=== PATIENT | male | born 1995 | race Caucasian/White ===

== ENCOUNTER 2016-04-22 10:49 | Emergency (ER) | payer OTHER ==
[2016-04-22] MEDS ORDERED: MAG-AL PLUS XS SUSP 30 ML UDC ONE (11:52)
[2016-04-22] MEDS ORDERED: PHENOBARB/HYOSCY/ATROPINE/SCOP 16.2 MG/5 ML SYR ONE (11:54)
[2016-04-22] MEDS ORDERED: LIDOCAINE VISCOUS 2% 15 ML UDC ONE (11:58)
[2016-04-22] MEDS ORDERED: PANTOPRAZOLE 40 MG TABLET PO ONE (11:59)
[2016-04-22] MEDS ORDERED: MAGNESIUM SULFATE 1 GM/2 ML VIAL ONE (12:08)
[2016-04-22] MEDS ORDERED: MULTIVITAMINS 10 ML VIAL IV ONE (12:09)
[2016-04-22] MEDS ORDERED: THIAMINE HCL 200 MG/2 ML VIAL ONE (12:09)
[2016-04-22] MEDS ORDERED: NORMAL SALINE 0 ML IV ONE (12:09)
--- NOTE | 2016-04-22 13:04 | ER PHYSICIAN DOCUMENTATION ---
Physician Documentation [facility] Name:Eren Balderas Age:20 yrs Sex:Male :1995 Arrival Date:04/22/2016 Time:10:49 Bed3 Private MD: Chong Nelson Disposition: 04/22 11:26 Critical Care: not applicable. cd Disposition: 04/22/16 11:27 Discharged to Home/Self Care. Impression: GERD, Gastritis. - Condition is Fair. - Discharge Instructions: ESOPHAGEAL REFLUX (Adult), GASTRITIS (Adult). - Prescriptions for Prilosec 20 mg Oral Capsule - take 1 capsule by ORAL route once daily; 10 capsule. - Medical Reconciliation form form. - Follow up: Private Physician; When: 7 - 10 days; Reason: Recheck today's complaints, Continuance of care. - Problem is new. - Symptoms have improved. - Notes: Dillon diet for 2 - 3 days. Maalox 30 ml by mouth one hour before meals and one hour after meals and at bedtime for 2 - 3 days. Prilosec 20mg by mouth every day for 10 days. STOP smoking....not even one cigarette while out with friends. No alcoholic drinks for 1 weeks...and reduce alcohol intake from now on. HPI: 10:55 This 20 yrs old Male presents to ER via Private Vehicle with complaints of cd Epigastric discomfort, reflux, tightness in throat.. 10:55 The patient presents with abdominal pain in the epigastric area. Onset: The cd symptoms/episode began/occurred acutely, last night. The symptoms do not radiate. Associated signs and symptoms: Pertinent positives: nausea, and reflux symptoms, Pertinent negatives: blood in stools, diarrhea, fever, shortness of breath, vomiting. The symptoms are described as burning. Severity of pain: At its worst the pain was moderate in the emergency department the pain is unchanged. The patient has experienced similar episodes in the past, today's symptoms are similar, Patient has had multiple workups and no etiology diagnosed. 11:02 Patient reports going out with friends drinking alcohol and smoking a few cigarettes. I cd explained that he needs to cut back significantly on his ETOH consumption and stop smoking completely.. Historical: - Allergies: No known drug Allergies; - Home Meds: 1. sertraline oral - PMHx: Frequent epigastric burning; - Tetanus: unknown. - Ebola Screening: : No symptoms or risks identified at this time. . - Immunization history: Flu Vaccine None. - Social history: Smoking status: Patient uses tobacco products, light tobacco smoker. ROS: 11:02 ENT: Negative for injury, pain, epistaxis and discharge. cd Neck: Negative for injury, pain, stiffness and swelling. Cardiovascular: Negative for chest pain, palpitations, edema and pleuritic pain. Respiratory: Negative for shortness of breath, dyspnea on exertion, cough, sputum production, wheezing, hemoptysis and pleuritic chest pain. 11:02 Back: Negative for injury, pain or muscle spasms. cd 11:02 Constitutional: Positive for poor PO intake, Negative for chills, fever. 11:02 Abdomen/GI: Positive for abdominal pain, nausea, anorexia, Negative for vomiting, diarrhea, abdominal distension, hematemesis, black/tarry stool, rectal bleeding. 11:02 All other systems are negative. Exam: ENT: Nares patent. No nasal discharge, no septal abnormalities noted. Tympanic membranes are normal and external auditory canals are clear. Oropharynx with no redness, swelling, or masses, exudates, or evidence of obstruction, uvula midline. Mucous membranes moist. 11:02 Neck: Trachea midline, no thyromegaly or masses palpated, and no cervical cd lymphadenopathy. Supple, full range of motion without nuchal rigidity, or vertebral point tenderness. No Meningismus. 11:02 Constitutional: The patient appears alert, awake, non-diaphoretic, non-toxic, well developed, well nourished, anxious, in obvious distress, mildly distressed. 11:02 Cardiovascular: Rate: normal, Rhythm: regular, Pulses: no pulse deficits are appreciated. 11:02 Respiratory: the patient does not display signs of respiratory distress, Respirations: normal, no acute changes, Breath sounds: are normal, clear throughout. 11:02 Abdomen/GI: Inspection: abdomen appears normal, Bowel sounds: normal, Palpation: mild abdominal tenderness, in the epigastric area, rebound tenderness, is not appreciated, voluntary guarding, is not appreciated, involuntary guarding, is not appreciated, no appreciated organomegaly, Indicators: McBurney's point is not tender, Real's sign is negative. 11:02 : CVA tenderness, is absent. Vital Signs: 11:06 BP 143 / 100; Pulse 76; Resp 18; Temp 98.1(O); Pulse Ox 95% ; Weight 88.45 kg (R); ma Height 6 ft. 3 in. (190.50 cm); Pain 6/10; 11:45 BP 146 / 86; Pulse 72; Pulse Ox 94% on R/A; ma 12:15 BP 135 / 86; Pulse 56; Pulse Ox 94% on R/A; ma 11:06 Body Mass Index 24.37 (88.45 kg, 190.50 cm) md MDM: 10:55 Data interpreted: Pulse oximetry: on room air is 94 %. Interpretation: normal. cd 11:02 Differential diagnosis: gastritis, GERD. Dehydration. cd 11:05 Data reviewed: vital signs, nurses notes, old medical records, and as a result, I will cd continue to observe the patient, administer IV fluids, NS bolus, and Protonix and a GI cocktail.. 11:17 Patient medically screened. cd 11:20 Counseling: I had a detailed discussion with the patient and/or guardian regarding: the cd historical points, exam findings, and any diagnostic results supporting the discharge/admit diagnosis, the need for outpatient follow up, for a recheck, with the patient's primary care provider, to return to the emergency department if symptoms worsen or persist or if there are any questions or concerns that arise at home. Response to treatment: the patient's symptoms have resolved after treatment, the patient's pain is gone, the patient is now symptom free, patient is well hydrated. and as a result, I will discharge patient. Dispensed Medications: 11:51 Drug: Protonix 40 mg; Route: PO; ma 12:35 Follow up: Response: Pain is decreased ma 11:51 Drug: NS 0.9% 1000 ml; Route: IV; Rate: bolus; Site: left antecubital; Delivery: ma [place] Tubing; 12:35 Follow up: IV Status: Completed infusion; IV Intake: 1000ml ma 12:10 Drug: GI Cocktail w/ Donnatol - (Maalox Suspension 30 ml, Phenobarbital-Belladonna 15 ma ml, Lidocaine Liquid 2 % 15 ml); Route: PO; 12:35 Follow up: Response: Pain is decreased ma Signatures: Abuso, Carmencita, RN RN ma Zenon, Amarilis, RN RN nf Rea, Chong, MD MD cd
--- NOTE | 2016-04-22 13:04 | ER NURSING DOCUMENTATION ---
Nurse's Notes [facility] Name:Eren Balderas Age:20 yrs Sex:Male :1995 Arrival Date:04/22/2016 Time:10:49 Bed3 Private MD: Diagnosis:GERD;Gastritis Presentation: 04/22 10:58 Presenting complaint: Patient states: Pt describes burning upper epigastric area and a ma feeling of tightness in his throat States has had these symptoms for several months and has had multiple workups by several docs including Dr Handy Able to swallow his own saliva No vomiting or diarrhea. Transition of care: Home. 10:58 Acuity: LUDY 3 ma 10:58 Method Of Arrival: Private Vehicle ma Triage Assessment: 11:05 General: Appears in no apparent distress, Behavior is cooperative. Pain: Complains of ma pain in xyphoid area. Respiratory: Reports Onset: The symptoms/episode began/occurred Several months, worse last night since drinking liquor, the patient has moderate shortness of breath. 11:10 GI: Abdomen is flat, Bowel sounds present X 4 quads. Abd is soft Reports upper ma abdominal pain. Historical: - Allergies: No known drug Allergies; - Home Meds: 1. sertraline oral - PMHx: Frequent epigastric burning; - Tetanus: unknown. - Ebola Screening: : No symptoms or risks identified at this time. . - Immunization history: Flu Vaccine None. - Social history: Smoking status: Patient uses tobacco products, light tobacco smoker. Screenin:08 Infectious Disease Risk None. Abuse screen: Denies threats or abuse. Nutritional ma screening: No deficits noted. Assessment: 11:09 Respiratory: Airway is patent Respiratory effort is even, Breath sounds are clear ma bilaterally. Respiratory: No deficits noted. Vital Signs: 11:06 BP 143 / 100; Pulse 76; Resp 18; Temp 98.1(O); Pulse Ox 95% ; Weight 88.45 kg (R); ma Height 6 ft. 3 in. (190.50 cm); Pain 6/10; 11:45 BP 146 / 86; Pulse 72; Pulse Ox 94% on R/A; ma 12:15 BP 135 / 86; Pulse 56; Pulse Ox 94% on R/A; ma 11:06 Body Mass Index 24.37 (88.45 kg, 190.50 cm) fl ED Course: 10:51 Patient arrived in ED. arc 10:58 Carmencita Buckner, RN is Primary Nurse. ma 11:01 Triage completed. ma 11:08 Valuables Remains with patient. Pulse ox on. NIBP on. ma 11:17 Chong Rea MD is Attending Physician. cd 11:17 Inserted peripheral IV: 18 gauge in left antecubital area and blood collected. arc 12:34 Discontinued IV intact, bleeding controlled, pressure dressing applied. ma Administered Medications: 11:51 Drug: Protonix 40 mg; Route: PO; ma 12:35 Follow up: Response: Pain is decreased ma 11:51 Drug: NS 0.9% 1000 ml; Route: IV; Rate: bolus; Site: left antecubital; Delivery: ma [place] Tubing; 12:35 Follow up: IV Status: Completed infusion; IV Intake: 1000ml ma 12:10 Drug: GI Cocktail w/ Donnatol - (Maalox Suspension 30 ml, Phenobarbital-Belladonna 15 ma ml, Lidocaine Liquid 2 % 15 ml); Route: PO; 12:35 Follow up: Response: Pain is decreased ma Intake: 12:35 IV: 1000ml; Total: 1000ml. ma Outcome: 11:27 Discharge ordered by . cd 13:03 Patient left the ED. nf 13:06 Discharged to home ma 13:06 Condition: stable 13:06 Instructed on discharge instructions, follow up and referral plans. Signatures: Carmencita Buckner, Amarilis De La Paz RN, ma, RN RN nf Daley, Chris, MD MD cd Chew, Sahra, Reg Reg arc
== END 2016-04-22 13:03 | disposition home or self-care (01) ==
LOC: ER 10:49
DX: K21.9 Gastro-esophageal reflux disease without esophagitis (principal); K29.70 Gastritis, unspecified, without bleeding; F17.210 Nicotine dependence, cigarettes, uncomplicated; Z79.899 Other long term (current) drug therapy
CPT/HCPCS: 96360; 99284; J3475; J7030

== ENCOUNTER 2016-05-14 12:15 | Emergency (ER) | payer OTHER ==
--- NOTE | 2016-05-14 15:22 | ER NURSING DOCUMENTATION ---
Nurse's Notes [facility] Name:Eren Balderas Age:20 yrs Sex:Male :1995 Arrival Date:05/14/2016 Time:12:15 Bed4 Private MD:Petros Kinsey Diagnosis:Dysphagia Presentation: 05/14 12:25 Presenting complaint: Patient states: Pt states he has had intermittent throat ma tightness with tingling and curling of fingers for several months History of depression with anxiety. Transition of care: Home. 12:25 Acuity: LUDY 3 ma 12:25 Method Of Arrival: Private Vehicle ma Triage Assessment: 12:28 General: Appears in no apparent distress, Behavior is cooperative. Pain: Denies pain. ma Historical: - Allergies: No known drug Allergies; - Home Meds: 1. sertraline oral - PMHx: Depression with anxiety; - PSHx: None; - Tetanus: unknown. - Ebola Screening: : No symptoms or risks identified at this time. . - Immunization history: Flu Vaccine < 1 year. - Social history: Smoking status: Patient states was never smoker of tobacco. Patient uses alcohol weekly. Screenin:29 Infectious Disease Risk None. Abuse screen: Denies threats or abuse. Nutritional ma screening: No deficits noted. Vital Signs: 12:28 BP 132 / 86; Pulse 74; Resp 22; Temp 98.8; Pulse Ox 94% on R/A; Weight 90.72 kg; Height ma 6 ft. 3 in. (190.50 cm); Pain 0/10; 12:28 Body Mass Index 25.00 (90.72 kg, 190.50 cm) ma ED Course: 12:16 Patient arrived in ED. lm3 12:18 Petros Kinsey MD is Private Physician. lm3 12:25 Carmencita Buckner, LES is Primary Nurse. ma 12:27 Triage completed. ma 12:29 Valuables Remains with patient Patient has correct armband on for positive ma identification. Bed in low position. Call light in reach. 13:19 Da Judd MD is Attending Physician. tl1 Administered Medications: No medications were administered Outcome: 13:50 Discharge ordered by MD. tl1 14:08 Discharged to home ma 14:08 Condition: stable 14:08 Discharge instructions given to patient, Instructed on discharge instructions, follow up and referral plans. Demonstrated understanding of instructions. 14:14 Patient left the ED. geremias 05/15 10:30 Discharge F/U Call: Unable to reach: no answer geremias Signatures: Carmencita Buckner, RN RN Da Arita MD MD tl1 Yvette Montoya lm3
--- NOTE | 2016-05-14 15:22 | ER PHYSICIAN DOCUMENTATION ---
Physician Documentation [facility] Name:Eren Balderas Age:20 yrs Sex:Male :1995 Arrival Date:05/14/2016 Time:12:15 Bed4 Private MD:Petros Kinsey ED, Tom Disposition: 05/14 14:50 Chart complete. tl1 Disposition: 05/14/16 13:50 Discharged to Home/Self Care. Impression: Dysphagia. - Condition is Good. - Medical Reconciliation form form. - Follow up: Private Physician; When: 06/07/2016; Reason: Recheck today's complaints, Continuance of care. - Problem is new. - Symptoms have improved. - Notes: THE CAUSE OF YOUR SYMPTOMS IS NOT CLEAR, BUT YOU DO NOT APPEAR TO HAVE AN EMERGENCY MEDICAL CONDITION AT THIS TIME. YOUR SYMPTOMS COULD BE GLOBUS HYSTERICUS - A SENSE OF TIGHTENING IN THE THROAT ASSOCIATED WITH AN ANXIETY REACTION. YOU HAVE AN APPOINTMENT IN THE ENT CLINIC AT THE [facility] WITH DR WOO, 06/07, AT 9 AM. YOU ARE ON THE WAIT LIST. CALL THE ENT OFFICE AT FOR FURTHER DETAILS. MAKE SURE TO BRING ALL YOUR RECENT MEDICAL RECORDS AND TEST RESULTS TO YOUR APPOINTMENT HPI: 12:50 This 20 yrs old Male presents to ER via Private Vehicle with complaints of tl1 Throat Tightness. 12:50 The patient presents with. tl1 14:08 He has an extensive history for the last 6-8 months of near syncope, sore throat, tl1 throat tightness. He has had an extensive w/u, including multiple labs, an EKG, echo, CT of the neck, thyroid u/s, EGD, CTA of the chest, all normal. He had a prolonged PT and PTT; not sure how that w/u ended. He now presents saying he has had about 40 episodes since last fall of pain and tightness in his throat. He has had a tonsillectomy and treatment for RST negative sore throat with Keflex. He comes in today, anxious for some kind of referral, because of changes in his symptoms. 5 days ago in [place] he had a typical episode, except for that he developed carpal (but not pedal) spasm. This lasted about 5 min and resolved. No stridor or syncope. 2 days ago, when his plane was landing in [place], . he had a similar episode that lasted for several minutes. He says that paramedics who saw him at that time said they did not believe he was hyperventillating. He comes to the ED now requesting a repeat u/s of his neck. Curiously, when he initally arrived, it was about 4 hours after initially presenting at the [facility] this AM at 9:00, when he was told to go to the ED for evaluation. Initially, and bizzarly as well, he initially denied any prior work up for this.. Historical: - Allergies: No known drug Allergies; - Home Meds: 1. sertraline oral - PMHx: Depression with anxiety; - PSHx: None; - Tetanus: unknown. - Ebola Screening: : No symptoms or risks identified at this time. . - Immunization history: Flu Vaccine < 1 year. - Social history: Smoking status: Patient states was never smoker of tobacco. Patient uses alcohol weekly. ROS: 13:00 ENT: Positive for sore throat. tl1 13:00 All other systems are negative. Exam: 13:00 Constitutional: This is a well developed, well nourished patient who is awake, alert, tl1 and in no acute distress. 13:00 Head/Face: Normocephalic, atraumatic. tl1 13:00 ENT: External ear(s): are unremarkable, Mouth: is normal, Posterior pharynx: is normal, Dental exam: normal, Voice: is normal. 13:00 Neck: External neck: is normal, ROM/movement: is normal, Lymph nodes: no appreciated lymphadenopathy. 13:00 Chest/axilla: Inspection: normal, Palpation: is normal. 13:00 Cardiovascular: Rate: normal, Rhythm: regular, Heart sounds: normal. 13:00 Respiratory: Respirations: normal, Breath sounds: are normal. 13:00 Neuro: Grossly normal.. Vital Signs: 12:28 BP 132 / 86; Pulse 74; Resp 22; Temp 98.8; Pulse Ox 94% on R/A; Weight 90.72 kg; Height ma 6 ft. 3 in. (190.50 cm); Pain 0/10; 12:28 Body Mass Index 25.00 (90.72 kg, 190.50 cm) fl MDM: 13:20 Patient medically screened. tl1 13:30 Differential diagnosis: Globus hystericus. Data reviewed: vital signs, nurses notes, tl1 old medical records, and as a result, I will discharge patient. Counseling: I had a detailed discussion with the patient and/or guardian regarding: the historical points, exam findings, and any diagnostic results supporting the discharge/admit diagnosis, the need for outpatient follow up, the need to transfer to another facility. Response to treatment: There is no appreciated change of the patient's symptoms at this time. 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 Much less likely would be some sort of vocal cord dysfunction. I am reasonably sure he does not have an emergent medical condition at this time.. ED course: Asymptomatic while here.. Dispensed Medications: No medications were administered Signatures: Carmencita Buckner, LES RN Da Arita MD MD tl1
== END 2016-05-14 14:15 | disposition home or self-care (01) ==
LOC: ER 12:15
DX: R13.10 Dysphagia, unspecified (principal)
CPT/HCPCS: 99281

== ENCOUNTER 2016-05-20 15:57 | Emergency (ER) | payer OTHER ==
--- NOTE | 2016-05-20 17:16 | CT REPORT ---
HISTORY: Left-sided throat pain, difficulty swallowing. COMPARISON: None. TECHNIQUE: This examination was performed using automated exposure control, adjustment of mA or kV according to patient size, and/or use of iterative reconstruction technique. Axial images of the neck obtained af ter administration of intravenous contrast. 100cc Isovue 300 contrast. FINDINGS: The visualized brain parenchyma is unremarkable. Soft tissues of the orbits are unremarkable. Bony structures and paranasal sinuses are unremarkable. The lung apices are within normal limits. The gr eat vessels of the head and neck are grossly unremarkable. Soft tissues of the nasopharynx, oropharynx, hypopharynx, base of tongue, vallecula and piriform sinu s are intact. Vocal folds are symmetric and demonstrate no mass. The thyroid gland is unremarkable. The major salivary glands are unremarkable. No pathologic adenopathy is identified. IMPRESSION: Unremarkable CT of the soft tissues of the neck. Final Electronic Signature: This report was electronically signed by Robert Gonzalez MD, FACR on 2016 5:13 PM. dylan /
--- NOTE | 2016-05-20 18:11 | ER NURSING DOCUMENTATION ---
Nurse's Notes [facility] Name:Eren Balderas Age:20 yrs Sex:Male :1995 Arrival Date:05/20/2016 Time:15:57 Bed2 Private MD:Petros Kinsey Diagnosis:Dysphagia Presentation: 05/20 16:11 Acuity: LUDY 4 nf 16:15 Presenting complaint: Patient states: throat/neck pressure x6 months and worsening x2 nf weeks and especially today, has had workup and seen multiple physicians, patient requesting an "emergency scope"; no apparent distress. 16:29 Transition of care: patient was not received from another setting of care. nf 16:29 Method Of Arrival: Walk In nf Triage Assessment: 16:30 General: Appears well nourished, well groomed, Behavior is pleasant. Pain: Denies pain. nf EENT: Nares are clear Oral mucosa is moist. Good dentition noted. Throat is reddened no exudate, tonsils not enlarged. Reports difficulty swallowing at times "pressure" in his neck x6 months which was intermittent and now is constant x2 weeks, patient cannot tell if pressure is neat his trachea or esophagus. Respiratory: No deficits noted. Airway is patent Respiratory effort is even, unlabored, Respiratory pattern is regular. Historical: - Allergies: No known drug Allergies; - Home Meds: 1. sertraline oral - PMHx: Depression with anxiety; Dysphagia (May 14, 2016); - PSHx: NONE; - Tetanus: Other NA today. - Ebola Screening: : No symptoms or risks identified at this time. . - Immunization history: Flu Vaccine unknown. - Social history: Smoking status: unknown if patient ever smoked tobacco. Screenin:35 Infectious Disease Risk None. Abuse screen: Denies threats or abuse. Nutritional nf screening: No deficits noted. Assessment: 16:34 See Triage Assessment done by same RN. Respiratory: Respiratory effort is no distress nf and able to speak in complete sentences Breath sounds are clear bilaterally. Vital Signs: 16:15 BP 144 / 86; Pulse 87; Resp 14; Temp 98.5(O); Pulse Ox 93% on R/A; Weight 90.72 kg; nf Height 6 ft. 3 in. (190.50 cm); Pain 0/10; 17:55 BP 127 / 80; Pulse 79; Resp 12; Pulse Ox 94% on R/A; Pain 0/10; nf 16:15 Body Mass Index 25.00 (90.72 kg, 190.50 cm) ED Course: 15:58 Patient arrived in ED. arc 15:58 Petros Kinsey MD is Private Physician. arc 16:11 Amarilis Yarbrough RN is Primary Nurse. nf 16:11 Triage completed. nf 16:19 Da Judd MD is Attending Physician. tl1 16:35 Valuables Remains with patient. Door closed. Noise minimized. Lights dimmed. Moved to private room. Verbal reassurance given. Pillow given. 16:[address] pm1 16:44 Osbaldo Garcia MD is Referral Physician. tl1 17:08 Patient moved back from [address]. pm1 17:55 Strep culture sent to lab. nf Administered Medications: No medications were administered Outcome: 16:46 Discharge ordered by MD. tl1 17:55 Discharge Assessment: nf 17:55 Discharge Assessment: upon discharge patient requested antibiotics for strep throat; rapid strep screen and culture sent to lab and Giles marley 17:55 IV D/Pete 18:05 Discharged to home ambulatory. nf 18:05 Condition: stable 18:05 Discharge Assessment: Patient awake, alert and oriented x 3. No cognitive and/or functional deficits noted. Patient verbalized understanding of disposition instructions. patient declines to wait for rapid strep results and states he will call back before 1900 for result 18:05 Discharge instructions given to patient, Instructed on discharge instructions, follow up and referral plans. Demonstrated understanding of instructions. 18:10 Patient left the ED. nf 18:14 Discharge F/U Call: Spoke with: patient. other: Name: patient notified by phone that his rapid strep test was negative and a culture will be run 05/21 09:27 Discharge F/U Call: Spoke with: patient. other: Name: pt states he has a fallow up st with an ENT and has no other questions or concerns. Signatures: Geeta Tillman RN RN Amarilis Yarbrough, LES SALDANA ChildersSabrina pm1 Da Judd MD MD tl1 Sahra Orozco, Reg Reg arc
--- NOTE | 2016-05-20 18:11 | ER PHYSICIAN DOCUMENTATION ---
Physician Documentation [facility] Name:Eren Balderas Age:20 yrs Sex:Male :1995 Arrival Date:05/20/2016 Time:15:57 Bed2 Private MD:Petros Kinsey ED, Tom Disposition: 05/20 17:35 Chart complete. tl1 Disposition: 05/20/16 16:46 Discharged to Home/Self Care. Impression: Dysphagia. - Condition is Good. - Medical Reconciliation form form. - Follow up: Osbaldo Garcia MD; When: As needed; Reason: Recheck today's complaints, Continuance of care. - Problem is new. - Symptoms have improved. - Notes: YOU HAVE SOMETHING CALLED A GLOBUS SENSATION. YOUR CT OF YOUR NECK IS NORMAL. THIS IS UNLIKELY TO LEAD TO ANY WORRISOME PROBLEMS. HPI: 16:00 This 20 yrs old Male presents to ER via Walk In with complaints of Sore tl1 Throat. 16:00 The patient presents with dysphagia, a foreign body sensation in the throat. Onset: The tl1 symptom(s)/episode began/occurred 6 month(s) ago. See my note from last week. He has had a globus sensation for months with an extensive w/u including CT, CTPA, EGD, neck U/S. 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 He still has a sense of fullness in the right paralaryngeal area and is still very anxious about this. He comes in requesting an emergent endoscopy. He says his throat is still sore and red, with some white spots. Says he was treated with keflex for 10 days, two weeks ago for presumed GABHSP with no change in his symptoms.. Historical: - Allergies: No known drug Allergies; - Home Meds: 1. sertraline oral - PMHx: Depression with anxiety; Dysphagia (May 14, 2016); - PSHx: NONE; - Tetanus: Other NA today. - Ebola Screening: : No symptoms or risks identified at this time. . - Immunization history: Flu Vaccine unknown. - Social history: Smoking status: unknown if patient ever smoked tobacco. ROS: 17:22 ENT: Positive for difficulty swallowing, foreign body sensation, sore throat, Negative tl1 for difficulty handling secretions, hoarseness. 17:22 All other systems are negative. Exam: 17:23 Constitutional: This is a well developed, well nourished patient who is awake, alert, tl1 and in no acute distress. Head/Face: Normocephalic, atraumatic. 17:23 Eyes: Pupils equal round and reactive to light, extra-ocular motions intact. Lids and tl1 lashes normal. Conjunctiva and sclera are non-icteric and not injected. Cornea within normal limits. Periorbital areas with no swelling, redness, or edema. 17:23 ENT: External ear(s): are unremarkable, Mouth: is normal, Oral mucosa: normal, pink and intact, moist, Gums: normal with healthy appearance, Tongue: is normal, abscess, is not appreciated, drooling, is not appreciated. 17:23 ENT: Posterior pharynx: Uvula: normal, midline, erythema, that is mild, Voice: is normal, Breath odor: is normal. 17:23 Neck: External neck: is normal, Thyroid: appears normal, Trachea: is midline with no obvious abnormalities, ROM/movement: is normal, Meningeal signs: are not present. 17:23 Cardiovascular: Rate: normal. 17:23 Respiratory: Respirations: normal. 17:23 Respiratory: Breath sounds: are normal. 17:23 Skin: Exam negative for acute changes. Vital Signs: 16:15 BP 144 / 86; Pulse 87; Resp 14; Temp 98.5(O); Pulse Ox 93% on R/A; Weight 90.72 kg; nf Height 6 ft. 3 in. (190.50 cm); Pain 0/10; 17:55 BP 127 / 80; Pulse 79; Resp 12; Pulse Ox 94% on R/A; Pain 0/10; nf 16:15 Body Mass Index 25.00 (90.72 kg, 190.50 cm) nf MDM: 15:59 Patient medically screened. tl1 17:29 Differential diagnosis: lymphoma, mononucleosis, peritonsillar abscess pharyngitis, tl1 retropharyngeal abcess squamous cell carcinoma tonsillitis, uvulitis, viral syndrome achalasia, esophageal inlet patch, post cricoid webs, upper esophageal sphincter hypertension/spasm., vocal cord dysfunction, GERD. Data reviewed: vital signs, nurses notes, radiologic studies, CT scan, and as a result, I will discharge patient. Counseling: I had a detailed discussion with the patient and/or guardian regarding: the historical points, exam findings, and any diagnostic results supporting the discharge/admit diagnosis, radiology results, the need for outpatient follow up, to return to the emergency department if symptoms worsen or persist or if there are any questions or concerns that arise at home. Response to treatment: There is no appreciated change of the patient's symptoms at this time, and as a result, I will discharge patient. Special discussion: I explained, again, that this globus sensation is almost always benign and reiterated that I think he will be safe until his ENT appointment on 06/02.. 05/20 17:17 Order name: CAT SCAN;NECK SOFT [id number]; Complete Time: 10:33 EDMS Dispensed Medications: No medications were administered Signatures: Amarilis Yarbrough RN RN Da García MD MD tl1
== END 2016-05-20 18:11 | disposition home or self-care (01) ==
LOC: ER 15:57
DX: R13.10 Dysphagia, unspecified (principal); J02.9 Acute pharyngitis, unspecified; Z79.899 Other long term (current) drug therapy
CPT/HCPCS: 70491; 86403; 87081; 99284